=== PATIENT | female | born 1980 | race Caucasian/White ===

== ENCOUNTER 2020-02-01 09:47 | Emergency (ER) | payer BC ==
[~2020-02-01] VITALS: Ht 162.6 cm; Wt 67.1 kg
[2020-02-01 09:55] VITALS: BP_SYST 128
--- NOTE | 2020-02-01 09:55 | NUR ---
Placed in room 3 . Placed on skating carhop, blood pressure machine and pulse oximeter. To gown for exam. Side rails up. Report given to SAQIB Ocampo.
--- NOTE | 2020-02-01 10:00 | NUR ---
Pt walked in to ER with c/o abdominal pain 01/28 and vaginal bleeding. Denies any trauma at this time. V/S stable, pt is afebrile. Currently resting in bed, will continue to monitor.
--- NOTE | 2020-02-01 10:05 | NUR ---
ER Dr. Powers at bedside examining patient.
--- NOTE | 2020-02-01 10:10 | NUR ---
# 20 gauge angiocath placed to RAC. Use of asceptic technique. Opsite placed over site. Blood return noted. Blood for lab drawn from site. Flushed with 10 cc of normal saline. No evidence of infiltration noted. Patient tolerated well.
--- NOTE | 2020-02-01 10:15 | NUR ---
Urine sample obtained and sent to lab.
--- NOTE | 2020-02-01 10:15 | NUR ---
Urine dipped for , negative results. MD zhang
[2020-02-01] MEDS ORDERED: KETOROLAC TROMETHAMINE 30 MG VIAL IVP ONE (10:30)
[2020-02-01 10:54] LABS: BASOPHILS % (AUTO) 0.4 % (0.0-2.0); EOSINOPHILS # (AUTO) 0.1 K/uL (0.0-0.4); EOSINOPHILS % (AUTO) 0.9 % (0.0-4.0); HEMATOCRIT 43.5 % (36-48); HEMOGLOBIN 14.6 g/dL (12.0-16.0); LYMPHOCYTES # (AUTO) 1.9 K/uL (1.0-5.5); LYMPHOCYTES % (AUTO) 25.8 % (20.5-51.5); MEAN CORPUSCULAR HEMOGLOBIN 31 pg (27-31); MEAN CORPUSCULAR HGB CONC 34 % (32-36); MEAN CORPUSCULAR VOLUME 93 fL (79.0-98.0); MONOCYTES # (AUTO) 0.4 K/uL (0.0-1.0); MONOCYTES % (AUTO) 5.4 % (1.7-9.3); NEUTROPHILS # (AUTO) 4.9 K/uL (1.8-7.7); NEUTROPHILS % (AUTO) 67.5 % (40.0-70.0); PLATELET COUNT (AUTO) 267 K/uL (130-430); RED BLOOD CELL COUNT(AUTO) 4.66 MIL/uL (4.2-6.2); RED CELL DISTRIBUTION WIDTH 13.2 % (9.0-15.0); WHITE BLOOD COUNT (AUTO) 7.2 K/uL (4.8-10.8)
--- NOTE | 2020-02-01 11:00 | NUR ---
Patient transported to radiology via wheelchair, accompanied by staff.
[2020-02-01 11:10] LABS: CALCIUM 9.2 mg/dL (8.4-11.0); CREATININE 0.72 mg/dL (0.55-1.30); POTASSIUM 3.4 mmol/L (3.5-5.1)
[2020-02-01] MEDS ORDERED: NACL 0.9% 1,000 ML IV ONE (11:15)
[2020-02-01 11:16] LABS: ALBUMIN 4.1 g/dL (3.4-4.8); TOTAL BILIRUBIN 0.5 mg/dL (0.0-1.0)
[2020-02-01 11:21] LABS: BILIRUBIN,URINE NEGATIVE (NEGATIVE); BLOOD, URINE 3+ (NEGATIVE); COLOR,URINE YELLOW (YELLOW); GLUCOSE,URINE NEGATIVE (NEGATIVE); KETONES,URINE NEGATIVE (NEGATIVE); LEUKOCYTE ESTERASE ,URINE TRACE (NEGATIVE); NITRITE, URINE NEGATIVE (NEGATIVE); PROTEIN URINE NEGATIVE (NEGATIVE); UROBILINOGEN,URINE 0.2 (0.2-1.0)
--- NOTE | 2020-02-01 11:21 | NUR ---
1L NS bolus infusing as ordered
[2020-02-01 11:26] LABS: CLARITY/URINE HAZY (CLEAR)
[2020-02-01 11:29] LABS: BACTERIA,URINE MODERATE /HPF (None Seen); RBC,URINE 50-80 /HPF (0-3); WBC,URINE 0-3 /HPF (0-3)
[2020-02-01 11:30] LABS: MUCUS,URINE 1+ /LPF (None Seen)
--- NOTE | 2020-02-01 11:48 | NUR ---
Patient returned to room from ultrasound. Patient ambulatory to room.
[2020-02-01] MEDS ORDERED: ONDANSETRON HCL 4 MG/2 ML VIAL IVP ONE (12:15)
[2020-02-01] MEDS ORDERED: fentaNYL CITRATE/PF 100 MCG/2 ML AMP IVP ONE (12:15)
[2020-02-01 13:40] VITALS: BP_SYST 128
--- NOTE | 2020-02-01 13:40 | NUR ---
Patient given written and verbal discharge instructions and verbalizes understanding. ER MD discussed with patient the results and treatment provided. Patient in stable condition. ID arm band removed. IV catheter removed intact and dressing applied, no active bleeding. No prescriptions given. Patient educated on pain management and to follow up with PMD. Pain Scale 2. Opportunity for questions provided and answered. Medication side effect fact sheet provided. Pt picked up by friend d/t receiving narcotic medication. Educated on importance of not operating a vehicle while under the influence of medication.
== END 2020-02-01 13:40 | disposition home or self-care (01) ==
LOC: SED 09:47
DX: D25.9 Leiomyoma of uterus, unspecified (principal); N93.9 Abnormal uterine and vaginal bleeding, unspecified; R10.2 Pelvic and perineal pain
CPT/HCPCS: 36415; 76830; 76857; 80053; 81000; 81025; 83690; 85025; 87086; 96374; 96375; 99284; J1885; J2405; J3010; J7030